=== PATIENT | male | born 2000 | race Caucasian/White ===

== ENCOUNTER 2020-06-21 11:08 | Emergency (ER) | payer OTHER ==
[~2020-06-21] VITALS: Ht 180.3 cm; Wt 72.7 kg
--- OUTSIDE RECORDS SUMMARY | 2020-06-21 12:07 | CCD ---
Author Author [facility] Organization [facility] Address Unknown Phone Unavailable Care Team Providers Care Neon Sign Installer Name Role Phone BARRAZA,, DERIK WILLIS Unavailable Unavailable BARRAZA,, DERIK WILLIS Unavailable Unavailable BARRAZA,, DERIK WILLIS Unavailable Unavailable BARRAZA,, DERIK WILLIS Unavailable Unavailable BARRAZA,, DERIK WILLIS Unavailable Unavailable BARRAZA,, DERIK WILLIS Unavailable Unavailable BARRAZA,, DERIK WILLIS Unavailable Unavailable BARRAZA,, DERIK WILLIS Unavailable Unavailable BARRAZA,, DERIK WILLIS Unavailable Unavailable BARRAZA,, DERIK WILLIS Unavailable Unavailable BARRAZA,, DERIK WILLIS Unavailable Unavailable BARRAZA,, DERIK WILLIS Unavailable Unavailable WILLI MICHELE Unavailable Unavailable Re-disclosure Warning The records that you are about to access may contain information from federally-assisted alcohol or drug abuse programs. If such information is present, then the following federally mandated warning applies: This information has been disclosed to you from records protected by federal confidentiality rules (42 CFR part 2). The federal rules prohibit you from making any further disclosure of this information unless further disclosure is expressly permitted by the written consent of the person to whom it pertains or as otherwise permitted by 42 CFR part 2. A general authorization for the release of medical or other information is NOT sufficient for this purpose. The Federal rules restrict any use of the information to criminally investigate or prosecute any alcohol or drug abuse patient.The records that you are about to access may contain highly sensitive health information, the redisclosure of which is protected by Article 27-F of the [facility] Public Health law. If you continue you may have access to information: Regarding HIV / AIDS; Provided by facilities licensed or operated by the [facility] Office of Mental Health; or Provided by the [facility] Office for People With Developmental Disabilities. If such information is present, then the following [facility] mandated warning applies: This information has been disclosed to you from confidential records which are protected by state law. State law prohibits you from making any further disclosure of this information without the specific written consent of the person to whom it pertains, or as otherwise permitted by law. Any unauthorized further disclosure in violation of state law may result in a fine or long term sentence or both. A general authorization for the release of medical or other information is NOT sufficient authorization for further disc losure. Allergies and Adverse Reactions Type Description Substance Reaction Status Data Source(s ) No Known Drug Allergies No Known Drug Allergies [facility] No Known Environmental Allergies No Known Environmental Al lergies [facility] No Known Food Allergies No Known Food Allergies [facility] Encounters Encounter Providers Location Date Indications Data Source(s ) Outpatient Attender: OWEN BARRAZA, 10/30/2019 08:30:00 AM EDT - 10/30/2019 01:10:00 PM [facility] Patient discharged. Outpatient Attender: OWEN BARRAZA, 10/27/2019 09:30:00 AM EDT - 10/27/2019 10:30:00 AM [facility] Outpatient Attender: WILLI MICHELE 020 01:57:00 PM EDT - 08/20/2019 02:57:00 PM [facility] Insurance Providers Payer name Policy type / Coverage type Policy ID Covered democrat ID Covered democrat's relationship to burgos Policy [place] Plan Information [facility] ACTIVE DUTY [id number] SP [id number] [facility] HUMANA - O/P [id number] 18 [id number] Problems, Conditions, and Diagnoses Code Display Name Description Problem Type Effective Dates Data Source(s) Z5333 Arthroscopic surgical procedure converte d to open procedure Arthroscopic surgical procedure converted to open procedure Diagnosis 020 08:30:00 AM EDT [facility] M6588 Other synovitis and tenosynovitis, other site Other synovitis and tenosynovitis, other site Diagnosis 10/30/2019 08:30:00 AM T [facility] 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, left knee Plica syndrome, left knee Di agnosis 10/30/2019 08:30:00 AM EDT [facility] [id number] Pain in left knee Pain in left knee Diagnosis 10/30/2019 08:30:00 AM EDT [facility] [id number] Encounter for other preprocedural examin ation Encounter for other preprocedural examination Diagnosis 10/27/2019 09:30:00 AM EDT [facility] Results ID Date Data Source [id number] 10/30/2019 12:23:00 [place] [address] OPERATIVE SUMMARYNAME: JUAN Salgado DATE OF : 2000ATTENDING PHYS: OWEN BARRAZA MD DATE: 10/30/19 MR#: [id number] OF PROCEDURE: 10/30/2019PRE-OPERATIVE DIAGNOSIS: 1. Left knee pain. 2. Patella tendinopathy.POST-OPERATIVE DIAGNOSIS: 1. Left knee pain. 2. Patella tendinopathy. 3. Plica.PROCEDURE PERFORMED: 1. Left knee examination under anesthesia. 2. Diagnostic arthroscopy. 3. Plica debridement. 4. Open patella tendon debridement.SURGEON: Dr. Owen Barraza.ANESTHESIA: General.ESTIMATED BLOOD LOSS: Less than 10 cc.IMPLANTS: None.SOCIAL SCIENCES RESEARCH SCIENTIST: RENETTA Rivers.SPECIMENS: None.BLOOD ADMINISTERED: None.COMPLICATIONS: None.TECHNICAL PROCEDURE:The patient was identified in the [facility] area by name, medical record number, anddate of . The surgical site was marked in consultation with the patient, and he was evaluated byAnesthesia. When he was ready, he was brought back to the operative suite on a gurney andtransferred to the OR table. At this point, general anesthesia was induced. Examination of the left [address] [place] [address] OPERATIVE SUMMARYNAME: JUAN Salgado DATE OF : 2000ATTENDING PHYS: OWEN BARRAZA MD DATE: 10/30/19 MR#: [id number] revealed a full range of motion, normal stable ligamentous exam, and no joint effusion. Theleft lower extremity was next sterilely prepped and draped in the usual fashion. Prior to beginningthe procedure, a final time-out was performed and all in the room agreed. He was given IVantibiotics prior to incision. I began the procedure by exsanguinating the left lower extremity withthe Esmarch tourniquet, inflating the left upper thigh tourniquet to 250 mmHg. I next established astandard anterolateral arthroscopic portal, inserting the arthroscope and cannula. I next establishedan anteromedial portal in an outside-in fashion using a spinal needle. Identified a large engagingmedial femoral plica, and this was debrided back to stable margins along with portions of theanterior fat pad. The remainder of the knee arthroscopy was benign and nonfocal. There was asmall area of chondromalacia in the femoral trochlea, grade 2 softening over about a 1 cm squarearea, and a limited chondroplasty was performed in this area. At this time, the arthroscope andinstruments were removed, the excess arthroscopy fluid was then expressed from the knee. Next, alongitudinal incision was made over the point of maximal tenderness at the inferior pole of thepatella, and the patella tendon in this area was gently debrided of any disorganized or devitalizedtissue, mostly on the posterior aspect of the tendon. The wounds were next copiously irrigated, thepatella tendon and incision were closed in layers, sterile dressings were applied along with the post-operative knee brace, the tourniquet was deflated, and the patient was brought out of anesthesia.DD: OWEN BARRAZA MD 10/30/19 11:28DT: RAQUEL 10/30/19 11:41DS: OWEN BARRAZA MD 11/06/19 11:50 2 Name Value Range Interpretation Code Description Data Lennie rce(s) Supporting Document(s) Procedure Vital Signs ID Date Data Source [id number] 11/06/2019 11:50:18 AM EDT [facility] Name Value Range Interpretation Code Description Data Source(s) WEIGHT RECORDED 160.00 pounds 160.00 pounds Car [facility] Height 71 Inches 071 Inches [facility]
[2020-06-21 12:27] LABS: HEMATOCRIT 44.6 % (42.0-52.0); HEMOGLOBIN 15.1 g/dl (13.5-17.5); MEAN CORPUSCULAR HEMOGLOBIN 29.9 pg (27.0-33.0); MEAN CORPUSCULAR HGB CONC 33.9 g/dl (32.0-36.5); MEAN CORPUSCULAR VOLUME 88.3 fl (80.0-96.0); PLATELET COUNT, AUTOMATED 215 10^3/uL (150-450); RED BLOOD COUNT 5.05 10^6/uL (4.30-6.10); WHITE BLOOD COUNT 5.5 10^3/uL (4.0-10.0)
[2020-06-21 12:56] LABS: AMPHETAMINES LEVEL URINE NEGATIVE (NEGATIVE); BARBITURATES URINE NEGATIVE (NEGATIVE); BENZODIAZEPINES URINE NEGATIVE (NEGATIVE); CANNABINOIDS URINE NEGATIVE (NEGATIVE); COCAINE METABOLITE URINE NEGATIVE (NEGATIVE); METHADONE URINE NEGATIVE (NEGATIVE); OPIATES URINE NEGATIVE (NEGATIVE); PHENCYCLIDINE URINE NEGATIVE (NEGATIVE)
[2020-06-21 13:14] LABS: ACETAMINOPHEN LEVEL < 2.0 UG/ML (10.0-30.0); ALBUMIN 4.4 GM/DL (3.2-5.2); ALT/SGPT 26 U/L (12-78); BILIRUBIN,DIRECT 0.2 MG/DL (0.0-0.2); BILIRUBIN,TOTAL 0.6 MG/DL (0.2-1.0); BLOOD UREA NITROGEN 13 MG/DL (7-18); CALCIUM LEVEL 9.6 MG/DL (8.5-10.1); CARBON DIOXIDE LEVEL 27 MEQ/L (21-32); CHLORIDE LEVEL 110 MEQ/L (98-107); ETHYL ALCOHOL (ETHANOL) < 0.003 % (0.000-0.010); GLOMERULAR FILTRATION RATE > 60.0 (>60); GLUCOSE, FASTING 89 MG/DL (70-100); POTASSIUM SERUM 4.5 MEQ/L (3.5-5.1); SALICYLATE LEVEL < 1.7 MG/DL (5.0-30.0); SODIUM LEVEL 141 MEQ/L (136-145); THYROID STIMULATING HORMONE 0.476 uIU/ML (0.358-3.740); TOTAL PROTEIN 7.1 GM/DL (6.4-8.2)
--- NOTE | 2020-06-22 06:03 | ECGEPIP ---
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
[2020-06-22 11:02] VITALS: BP 156/72
== END 2020-06-22 11:00 ==
LOC: M ED 11:08
DX: F33.9 Major depressive disorder, recurrent, unspecified (principal); R45.851 Suicidal ideations
CPT/HCPCS: 36415; 80048; 80076; 80307; 84443; 85027; 87486; 87581; 87633; 87798; 93005; 99284; G0480

== ENCOUNTER 2020-07-28 08:09 | Emergency (ER) | payer OTHER ==
[~2020-07-28] VITALS: Ht 180.3 cm; Wt 75.0 kg
[2020-07-28] MEDS ORDERED: KETOROLAC 30 MG/ML 1ML VIAL IM ONE (08:40)
--- OUTSIDE RECORDS SUMMARY | 2020-07-28 09:08 | CCD ---
Author Author [facility] Organization [facility] Address Unknown Phone Unavailable Care Team Providers Care Gis Software Developer Name Role Phone Colon, Kiran Unavailable Unavailable Colon, Kiran Unavailable Unavailable Colon, Kiran Unavailable Unavailable Colon, Kiran Unavailable Unavailable CRISTY, MELY BUSINESS EDUCATION TEACHER Unavailable Unavailable CRISTY, MELY BUSINESS EDUCATION TEACHER Unavailable Unavailable CRISTY, MELY BUSINESS EDUCATION TEACHER Unavailable Unavailable CRISTY, MELY BUSINESS EDUCATION TEACHER Unavailable Unavailable CRISTY, MELY BUSINESS EDUCATION TEACHER Unavailable Unavailable CRISTY, MELY BUSINESS EDUCATION TEACHER Unavailable Unavailable CRISTY, MELY BUSINESS EDUCATION TEACHER Unavailable Unavailable BARRAZA,, DERIK WILLIS Unavailable Unavailable BARRAZA,, DERIK WILLIS Unavailable Unavailable BARRAZA,, DERIK WILLIS Unavailable Unavailable BARRAZA,, DERIK WILLIS Unavailable Unavailable BARRAZA,, DERIK WILLIS Unavailable Unavailable BARRAZA,, DERIK WILLIS Unavailable Unavailable BARRAZA,, DERIK WILLIS Unavailable Unavailable BARRAZA,, DERIK WILLIS Unavailable Unavailable BARRAZA,, DERIK WILLIS Unavailable Unavailable BARRAZA,, DERIK WILLIS Unavailable Unavailable BARRAZA,, DERIK WILLIS Unavailable Unavailable BARRAZA,, DERIK WILLIS Unavailable Unavailable Galo Saha MD Unavailable Unavailable MICHELEKURTWILLI Unavailable Unavailable Althouse, Lalita BUSINESS EDUCATION TEACHER Unavailable Unavailable Re-disclosure Warning The records that [...] is protected by Article 27-F of the [facility] Public Health law. If you continue you may have access to information: Regarding HIV / AIDS; Provided by facilities licensed or operated by the [facility] Office of Mental Health; or Provided by the [facility] Office for People With Developmental Disabilities. If such information is present, then the following [facility] mandated warning applies: This information has [...] law may result in a fine or skilled nursing sentence or both. A general authorization for the release of medical or other information is NOT sufficient authorization for further disc losure. Allergies and Adverse Reactions Type Description Substance Reaction Status Data Source(s ) Drug allergy No Known Allergies No Known Allergies [facility] No Known Drug Allergies No Known Drug Allergies [facility] No Known Environmental Allergies No Known Environmental [facility] No Known Food Allergies No Known Food Allergies [facility] Encounters Encounter Providers Location Date Indications Data Source(s ) Outpatient Attender: Lalita Olivas PAdmitter: Kiran ColonConsultant: Kiran Colon 06/22/2020 12:20:00 PM EST R45.851 [facility] R45.851 SI Inpatient Attender: Kiran ColonAdmitter: Kiran Colon 06/22/2020 12:20:00 PM EST - 06/28/2020 11:37:00 AM EST R45.851 [facility] R45.851 SI Patient discharged. Outpatient Attender: Lalita Olivas PAdmitter: Kiran ColonConsultant: Kiran Colon 06/22/2020 12:20:00 PM EST R45.851 [facility] R45.851 SI Outpatient Attender: MELY MUNIZ NPAdmitter: Kiran ColonConsultant: Kiran Colon 06/22/2020 12:20:00 PM EST R45.851 [facility] R45.851 SI Outpatient Attender: MELY MUNIZ NPAdmitter: Kiran ColonConsultant: Kiran Colon 06/22/2020 12:20:00 PM EST R45.851 [facility] R45.851 SI Outpatient Attender: Galo Saha MD Admitter: Kiran ColonConsultant: Kiran Colon 06/22/2020 12:20:00 PM EST R45.851 [facility] R45.851 SI Outpatient Attender: Galo Saha MD Admitter: Kiran ColonConsultant: Kiran Colon 06/22/2020 12:20:00 PM EST R45.851 [facility] R45.851 SI Outpatient Attender: OWEN BARRAZA, 10/30/2019 08:30:00 AM EDT - 10/30/2019 01:10:00 PM EDT [facility] Patient discharged. Outpatient Attender: OWEN BARRAZA, 10/27/2019 09:30:00 AM EDT - 10/27/2019 10:30:00 AM T [facility] Outpatient Attender: WILLI MICHELE 020 01:57:00 PM EDT - 08/20/2019 02:57:00 PM [facility] Insurance Providers Payer name Policy type / Coverage type Policy ID Covered republican ID Covered republican's relationship to burgos Policy Burgos Plan Information [facility] ACTIVE DUTY [id number] [facility] [id number] SP [id number] [facility] HUMANA - O/P [id number] Problems, Conditions, and Diagnoses Code Display Name Description Problem Type Effective Dates Data Source(s) 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 Diagnosis 06/22/2020 12:20:00 PM EST [facility] F17.210 Nicotine dependence, cigarettes, uncompl icated F17.210 - Nicotine dependence, cigarettes, uncomplicated Diagnosis 06/22/2020 12:20:00 PM EST [facility] F10.20 Alcohol dependence, uncomplicated F10.20 - Alcohol dependence, uncomplicated Diagnosis 06/22/2020 12:20:00 PM [facility] F40.10 Social phobia, unspecified F40.10 - Social phobia, uns pecified Diagnosis 06/22/2020 12:20:00 PM [facility] F34.1 Dysthymic disorder F34.1 - Dysthymic disorder Diagnosi s 06/22/2020 12:20:00 PM [facility] F31.81 Bipolar II disorder F31.81 - Bipolar II disorder Diagn osis 06/22/2020 12:20:00 PM [facility] Z5333 Arthroscopic surgical procedure converte d to open procedure Arthroscopic surgical procedure converted to open procedure Diagnosis 020 08:30:00 AM EDT [facility] M6588 Other synovitis and tenosynovitis, other site Other synovitis and tenosynovitis, other site Diagnosis 10/30/2019 08:30:00 AM [facility] 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, left knee Plica syndrome, left knee Di agnosis [facility]2019 [id number] Pain in left knee Pain in left knee Diagnosis 10/30/2019 08:30:00 AM [facility] [id number] Encounter for other preprocedural examin ation Encounter for other preprocedural examination Diagnosis 10/27/2019 09:30:00 AM [facility] Results ID Date Data Source [id number] 06/25/2020 05:19:00 PM [facility] Name Value Range Interpretation Code Description Data Lennie rce(s) Supporting Document(s) Vitamin D,25-HYDROXY 28.2 ng/ml 30-100 L [facility] Vitamin D Status Range De ficiency <20 ng/ml Insufficiency 20-29.9 ng/ml Sufficiency 30-100 ng/ml Toxicity >100 ng/ml Patients should not be tested for 72 hours post fluorescein dye angiography. A false elevation of result may occur. ID Date Data Source [id number] 06/25/2020 04:26:00 PM [facility] Has Patient Fasted For The Past 12 Hour s? Y Has Patient Fasted For The Past 12 Hour s? Y Has Patient Fasted For The Past 12 Hour s? Y Has Patient Fasted For The Past 12 Hour s? Y Name Value Range Interpretation Code Description Data Lennie rce(s) Supporting Document(s) WHITE BLOOD COUNT 5.30 10^3/uL 4.00-10.50 [facility] RED BLOOD COUNT 5.56 10^6/uL 4.30-5.80 [facility] HEMOGLOBIN 16.4 G/DL 13.0-17.5 [facility]AT[facility]IT 47.7 % 41.0-53.0 [facility] MCV 85.8 FL 80.0-100.0 [facility] MCH 29.5 PG 27.0-34.0 [facility] MCHC 34.4 G/DL 32-36 [facility] RDW 11.9 % 11.5-14.5 [facility] PLATELET COUNT 222 10^3/uL 130-400 [facility] MPV 10.7 FL 8.7-13.2 N [facility] GRAN % (AUTO) 32.0 % 42.0-75.0 L [facility] LYMPH % (AUTO) 55.3 % 20.0-51.0 H [facility] MONO % (AUTO) 8.5 % 2.0-15.0 [facility] EOS % (AUTO) 3.6 % 0.0-11.0 N [facility] BASO % (AUTO) 0.4 % 0.0-2.0 [facility] IG % (AUTO) 0.2 % 1.00-5.00 [facility] IG # (AUTO) 0.0 10^3/uL <0.5 [facility] GRAN # (AUTO) 1.70 10^3/uL 1.50-6.50 [facility] LYMPH # (AUTO) 2.9 k/uL 1.0-5.0 [facility] MONO # (AUTO) 0.45 k/uL 0.20-1.50 [facility] EOS # (AUTO) 0.19 10^3/uL 0.00-1.10 [facility] BASO # (AUTO) 0.02 10^3/uL 0.00-0.20 [facility] ID Date Data Source [id number] 06/25/2020 05:08:00 PM EST [facility] Has Patient Fasted For The Past 12 Hour s? Y Has Patient Fasted For The Past 12 Hour s? Y Has Patient Fasted For The Past 12 Hour s? Y Has Patient Fasted For The Past 12 Hour s? Y Name Value Range Interpretation Code Description Data Lennie rce(s) Supporting Document(s) SODIUM 140 MEQ/L 135-[address] [facility] POTASSIUM 4.8 MEQ/L 3.5-5.[address] [facility] CHLORIDE 110 MEQ/L 94-110 [facility] CARBON DIOXIDE 26 MEQ/L 22-[address] [facility] ANION GAP 9 5-16 N [facility] BLOOD UREA NITRO 14 MG/DL 7-25 [facility] CREATININE 1.0 MG/DL 0.6-1.[address] [facility] GFR > 90.0 ML/MIN [facility] Stage G1 - Normal or high kidney functi on The GFR is an estimate of the Glomerular Filtration Rate. It is an aid to assess a patient's renal function. It is not a conclusive diagnosis of kidney disease. GFR normal is >=90 The MDRD GFR calculation is considered valid between the ages of 18 and 75 years only. BUN/CREAT RATIO 14 8-[address] [facility] GLUCOSE 83 MG/DL 70-[address] [facility] CA 9.4 MG/DL 8.7-10.[address] [facility] BILIRUBIN,TOTAL 0.5 MG/DL 0.1-1.[address] [facility] AST 22 U/L 5-[address] [facility] ALT 20 U/L 5-[address] [facility] ALKALINE PHOSPHATASE 63 U/L 40-140 [facility] alth TOTAL PROTEIN 6.8 G/DL 5.9-8.3 [facility] ALBUMIN 4.7 G/DL 3.0-5.[address] [facility] GLOBULIN 2.1 G/DL 1.5-3.[address] [facility] ALB/GLOB RATIO 2.2 G/DL 1.0-3.[address] [facility] ID Date Data Source [id number] 06/25/2020 05:08:00 PM [facility] Has Patient Fasted For The Past 12 Hour s? Y Has Patient Fasted For The Past 12 Hour s? Y Has Patient Fasted For The Past 12 Hour s? Y Has Patient Fasted For The Past 12 Hour s? Y Name Value Range Interpretation Code Description Data Lennie rce(s) Supporting Document(s) GLYCOSYLATED HGBA1C 4.8 % 4.1-6.5 [facility] ID Date Data Source [id number] 06/25/2020 05:08:00 PM [facility] Has [facility] Fasted For The Past 12 Hour s? Y Has Patient Fasted For The Past 12 Hour s? Y Has Patient Fasted For The Past 12 Hour s? Y Has Patient Fasted For The Past 12 Hour s? Y Name Value Range Interpretation Code Description Data Lennie rce(s) Supporting Document(s) TRIGLYCERIDES 94 MG/DL 45-150 [facility] CHOLESTEROL 150 MG/DL 125-200 [facility] LDL CHOLESTEROL 86 MG/DL 50-130 [facility] HDL CHOLESTEROL 45 MG/DL 39-96 [facility] CHOL/HDL RATIO 3.3 0-4.9 [facility] ID Date Data Source [id number] 06/25/2020 05:08:00 PM [facility] Has Patient Fasted For The Past 12 Hour s? Y Has Patient Fasted For The Past 12 Hour s? Y Has Patient Fasted For The Past 12 Hour s? Y Has Patient Fasted For The Past 12 Hour s? Y Name Value Range Interpretation Code Description Data Lennie rce(s) Supporting Document(s) TSH 1.245 uIU/ML 0.470-4.200 [facility] Patients should not be tested for 72 ho urs post fluorescein dye angiography. A false depression of result may occur. ID Date Data Source [id number] 06/21/2020 03:54:00 PM EST [facility] Name Value Range Interpretation Code Description Data Lennie rce(s) Supporting Document(s) SARS-CoV-2 (COVID 19) NEGATIVE - SARS-CoV-2 (COVID19) [facility] This lab was ordered by [facility] a nd reported by [facility]. ID Date Data Source [id number] 10/30/2019 12:23:00 [place] [address] OPERATIVE SUMMARYNAME: JUAN Salgado DATE OF : 2000ATTENDING PHYS: OWEN BARRAZA MD DATE: 10/30/19 MR#: [id number] PROCEDURE: 10/30/2019PRE-OPERATIVE DIAGNOSIS: 1. Left knee pain. 2. Patella tendinopathy.POST-OPERATIVE DIAGNOSIS: 1. Left knee pain. 2. Patella tendinopathy. 3. Plica.PROCEDURE PERFORMED: 1. Left knee examination under anesthesia. 2. Diagnostic arthroscopy. 3. Plica debridement. 4. Open patella tendon debridement.SURGEON: Dr. Owen Barraza.ANESTHESIA: General.ESTIMATED BLOOD LOSS: Less than 10 cc.IMPLANTS: None.INTERVENTIONAL SALE CONSULTANT: RENETTA Rivers.SPECIMENS: None.BLOOD ADMINISTERED: None.COMPLICATIONS: None.TECHNICAL PROCEDURE:The patient was identified in the [facility] area by name, medical record number, anddate of . The surgical site was marked in consultation with the patient, and he was evaluated byAnesthesia. When he was ready, he was brought back to the operative suite on a gurney andtransferred to the OR table. At this point, general anesthesia was induced. Examination of the left [address] [place] [address] OPERATIVE SUMMARYNAME: JUAN Salgado DATE OF : 2000ATTENDING PHYS: OWEN BARRAZA MD DATE: 10/30/19 MR#: [id number] revealed a full range of motion, normal [...] Procedure Vital Signs ID Date Data Source [id number] 11/06/2019 11:50:18 AM EDT [facility] Name Value Range Interpretation Code Description Data Source(s) WEIGHT RECORDED 160.00 pounds 160.00 pounds [facility] Height 71 Inches 071 Inches [facility]
[2020-07-28] MEDS ORDERED: KETO10TAB PO (09:28)
[2020-07-28 09:31] VITALS: BP 119/67
== END 2020-07-28 09:54 | disposition home or self-care (01) ==
LOC: M ED 08:09 → EDBD 08:09 → M ED 09:54
DX: S29.012A Strain of muscle and tendon of back wall of thorax, initial encounter (principal); X58.XXXA Exposure to other specified factors, initial encounter; Y92.89 Other specified places as the place of occurrence of the external cause; Y99.0 Civilian activity done for income or pay
CPT/HCPCS: 96372; 99284; J1885

== ENCOUNTER 2020-08-17 16:03 | Emergency (ER) | payer OTHER ==
[~2020-08-17] VITALS: Ht 180.3 cm; Wt 70.9 kg
[~2020-08-17 16:03] MED LIST: KETO10TAB PO
[2020-08-17] MEDS ORDERED: TRAZ-189 PO (16:16)
[2020-08-17] MEDS ORDERED: LEXA1TAB PO (16:39)
--- NOTE | 2020-08-17 17:12 | REP ---
INDICATION: cp/sob. COMPARISON: None. TECHNIQUE: Portable upright AP chest radiograph. FINDINGS: The lungs are well inflated and clear. The pleural angles are sharp. Heart size is normal. Pulmonary vasculature is not increased. No bony abnormality is seen. IMPRESSION: Negative portable chest x-ray. <Electronically signed by Mathew Strickland > 08/17/20 [id number]
[2020-08-17] MEDS ORDERED: ISOVUE-370 76% 100ML VIAL As Ordered ONE (17:20)
--- NOTE | 2020-08-17 17:49 | REPVR ---
PROCEDURE INFORMATION: Exam: CT Angiography Chest With Contrast Exam date and time: 08/17/2020 5:33 PM Age: 20 years old Clinical indication: Chest pain; Additional info: R/O pe TECHNIQUE: Imaging protocol: Computed tomographic angiography of the chest with contrast. 3D rendering (Not supervised by radiologist): MIP and/or 3D reconstructed images were created by the technologist. Radiation optimization: All CT scans at this facility use at least one of these dose optimization techniques: automated exposure control; mA and/or kV adjustment per patient size (includes targeted exams where dose is matched to clinical indication); or iterative reconstruction. Contrast material: ISOVUE 370; Contrast volume: 75 ml; Contrast route: INTRAVENOUS (IV); COMPARISON: [place] Chest, 1 view 08/17/2020 4:53 PM FINDINGS: Pulmonary arteries: No focal pulmonary artery filling defect to suggest acute pulmonary embolus. Aorta: No thoracic aortic aneurysm or dissection. Lungs: Pulmonary vascular/interstitial pattern does not suggest active pulmonary edema. No suspicious lung mass or air space process. No central endobronchial lesion. Pleural spaces: No pleural effusion or pneumothorax. Heart: No overt cardiac enlargement or abnormal volume of pericardial fluid. Mediastinal space: Residual thymic tissue is present in the anterior mediastinum. Small volume of pneumomediastinum is present extending into the base of the neck. No evidence of a penetrating injury. Lymph nodes: . No enlarged lymph nodes. Bones/joints: No acute displaced fractures involving ribs, sternum, thoracic spine or shoulder girdle. Soft tissues: No asymmetric abnormality of the extrathoracic soft tissues. IMPRESSION: 1. No evidence of acute pulmonary embolus. 2. Small volume pneumomediastinum which may be idiopathic. No evidence of an esophageal, tracheal or central airway injury and no evidence of thoracic osseous trauma. Electronically signed by: Fredrick Art On 08/17/2020 17:49:08 PM
[2020-08-17] MEDS ORDERED: IBUP-1022 PO (18:18)
[2020-08-17 19:00] VITALS: BP 131/78
--- NOTE | 2020-08-18 01:09 | ECGEPIP ---
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
== END 2020-08-17 19:07 | disposition home or self-care (01) ==
LOC: M ED 16:03
DX: J98.2 Interstitial emphysema (principal); I45.19 Other right bundle-branch block; Z79.899 Other long term (current) drug therapy
CPT/HCPCS: 36415; 71045; 71275; 80047; 93005; 99284; Q9967

== ENCOUNTER 2020-08-19 15:51 | Emergency (ER) | payer OTHER ==
[~2020-08-19] VITALS: Ht 180.3 cm; Wt 75.0 kg
[~2020-08-19 15:51] MED LIST changes: +IBUP-1022 PO; +LEXA1TAB PO; +TRAZ-189 PO
--- NOTE | 2020-08-19 16:30 | REP ---
INDICATION: HX OF PNUEMO. COMPARISON: Comparison chest x-ray August 17, 2020. TECHNIQUE: Two views.. FINDINGS: The lungs are well inflated and free of infiltrate. The pleural angles are sharp. The heart size is normal. Pulmonary vasculature is not increased. No significant bony abnormality is seen. Monitoring electrodes are noted. There is no evidence of pneumothorax or pneumomediastinum. IMPRESSION: Negative chest x-ray. <Electronically signed by Mathew Strickland > 08/19/20 [id number]
[2020-08-19] MEDS ORDERED: KETOROLAC 30 MG/ML 1ML VIAL IV ONE (18:00)
[2020-08-19 18:22] LABS: HEMATOCRIT 40.8 % (42.0-52.0); HEMOGLOBIN 14.6 g/dl (13.5-17.5); MEAN CORPUSCULAR HEMOGLOBIN 30.9 pg (27.0-33.0); MEAN CORPUSCULAR HGB CONC 35.8 g/dl (32.0-36.5); MEAN CORPUSCULAR VOLUME 86.3 fl (80.0-96.0); PLATELET COUNT, AUTOMATED 196 10^3/uL (150-450); RED BLOOD COUNT 4.73 10^6/uL (4.30-6.10); WHITE BLOOD COUNT 6.5 10^3/uL (4.0-10.0)
--- NOTE | 2020-08-19 18:54 | REPVR ---
PROCEDURE INFORMATION: Exam: CT Chest Without Contrast; Diagnostic Exam date and time: 08/19/2020 6:10 PM Age: 20 years old Clinical indication: Other: Pneumomediastinum TECHNIQUE: Imaging protocol: Diagnostic computed tomography of the chest without contrast. 3D rendering (Not supervised by radiologist): MIP and/or 3D reconstructed images were created by the technologist. Radiation optimization: All CT scans at this facility use at least one of these dose optimization techniques: automated exposure control; mA and/or kV adjustment per patient size (includes targeted exams where dose is matched to clinical indication); or iterative reconstruction. COMPARISON: CT ANGIO CHEST 08/17/2020 5:28 PM FINDINGS: Lungs: Unremarkable. Pleural spaces: Unremarkable. No pneumothorax. No pleural effusion. Heart: Unremarkable. No cardiomegaly. No pericardial effusion. Mediastinal space: Small amount of air demonstrated in the central mediastinum ascending into the AP window and base of the neck on the right. Volume of air has decreased in comparison to the prior study. Clinical correlation to exclude esophageal perforation suggested. Bronchial airways appear intact. Aorta: Unremarkable. No aortic aneurysm. Lymph nodes: Unremarkable. No enlarged lymph nodes. Bones/joints: Unremarkable. No acute fracture. Soft tissues: Unremarkable. IMPRESSION: Small amount of air demonstrated in the central mediastinum ascending into the AP window and base of the neck on the right. Volume of air has decreased in comparison to the prior study. Clinical correlation to exclude esophageal perforation suggested. Bronchial airways appear intact. Electronically signed by: Owen Ocasio On 08/19/2020 18:54:55 PM
[2020-08-19 19:06] LABS: ERYTHROCYTE SEDIMENTATION RATE 24 mm/hr (0-15)
[2020-08-19] MEDS ORDERED: dexameTHASONE 20MG/5ML VIAL (J1100 PER 1MG) IV ONE (19:35)
[2020-08-19] MEDS ORDERED: COMBIVENT RESPIMAT 100-20MCG INHALER 4GM INH ONE (19:35)
[2020-08-19] MEDS ORDERED: ALBUTEROL 90 MCG/ACT 8GM HFA INHALER INH ONE (21:45)
[2020-08-19] MEDS ORDERED: PRED20TA PO ×2 (21:53→22:24)
[2020-08-19] MEDS ORDERED: ACETAMINOPHEN TAB 650MG DOSE (2X325MG) PO ONE (21:55)
[2020-08-19 22:40] VITALS: BP 111/58
--- NOTE | 2020-08-21 08:06 | ECGEPIP ---
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
--- NOTE | 2020-08-22 13:42 | ED PDOC ---
Post-Departure Follow-Up both CTA chest from 08/17/20 and 08/19/20 faxed to [facility] for fu. per chart Dr castañeda signed off as stable Rylie Reyes MD Aug 22, 2020 13:42
== END 2020-08-19 22:40 | disposition home or self-care (01) ==
LOC: M ED 15:51
DX: R07.89 Other chest pain (principal); R06.02 Shortness of breath; Z79.899 Other long term (current) drug therapy; F17.210 Nicotine dependence, cigarettes, uncomplicated
CPT/HCPCS: 36415; 71046; 71250; 80047; 85027; 85652; 93005; 94640; 96374; 96375; 99285; J1100; J1885

== ENCOUNTER → 2020-10-04 | Outpatient (CLI) | payer OTHER ==
[~2020-10-04] MED LIST changes: +METHACHOLINE KIT (J7674) INH ONE; +PRED20TA PO
--- NOTE | 2020-10-04 13:47 | PFTRPT ---
Height: 71.00 Inches Weight: 157.00 Lbs BSA: 1.90 Diagnosis: R06.02 DATE: 10/04/2020 ORDERED BY: Kyler Greenwood M.D. QUALITY: Study of excellent technical quality. PROCEDURE: Under protocol, methacholine was administered. At a dose of 2.5 mg or 13.875 CDUs, a 29% decline in the FEV1 was noted. PC of 0.82 is significant. Flow rates did return to baseline post bronchodilator administration. IMPRESSION: Positive methacholine challenge study. MTDD
== END ==
LOC: M CARPUL 12:42
PROVIDERS: ATTEND Internal Medicine Pulmonary Disease
DX: Z13.83 Encounter for screening for respiratory disorder NEC (principal)
CPT/HCPCS: 94070; J7674